=== PATIENT | female | born 2005 | race Caucasian/White ===

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

== ENCOUNTER 2024-07-24 18:06 | Emergency (ER) | payer SELFPAY ==
[~2024-07-24] VITALS: Ht 157.4 cm; Wt 56.7 kg
[2024-07-24] MEDS ORDERED: ACETAMINOPHEN 325 MG TAB PO ONE (18:25)
[2024-07-24] MEDS ORDERED: Ondansetron Hydrochloride 4 MG TAB SL ONE (18:25)
[2024-07-24 18:39] LABS: EOS % 0.5 % (1.0-4.0); MEAN CELL VOLUME 90.1 fl (81.0-99.0); MEAN CORPUSCULAR HGB 29.6 pg (27.0-31.0); MEAN CORPUSCULAR HGB CONC 32.8 g/dl (33.0-37.0); MONO # 0.3 10*3/uL (0.1-1.0); MONO % 12.4 % (3.0-9.0); NEUT # 1.2 10*3/uL (2.3-7.9); NEUT % 56.6 % (47.0-73.0); PLATELET COUNT AUTOMATED 192 10*3/uL (130-400); RED BLOOD COUNT 4.33 10*6/uL (4.10-5.10); RED CELL DISTRI WIDTH 14.3 % (0-14.5); WHITE BLOOD COUNT 2.2 10*3/uL (4.8-10.8)
[2024-07-24 19:05] LABS: BUN 7 mg/dl (9-23); CHLORIDE 104 mmol/L (98-107); POTASSIUM 3.5 mmol/L (3.4-5.1)
[2024-07-24 19:22] LABS: B-hCG (QUALITATIVE) NEGATIVE (NEGATIVE)
[2024-07-24 19:58] LABS: BILIRUBIN Negative (Negative); BLOOD Trace-Lysed (Negative); CLARITY Clear (Clear); COLOR Yellow (Yellow); GLUCOSE Negative (Negative); KETONE Negative (Negative); LEUKO ESTERASE Negative (Negative); NITRITE Negative (Negative); SPECIFIC GRAVITY 1.025 (1.001-1.030)
[2024-07-24 20:15] LABS: BACTERIA 1+
[2024-07-24] MEDS ORDERED: Oseltamivir Phosphate 75 MG CAP PO ONE (20:20)
[2024-07-24] MEDS ORDERED: TAMIFLU 75MG CA75 MG PO (20:20)
== END 2024-07-24 20:21 | disposition home or self-care (01) ==
LOC: ED 18:06
PROVIDERS: Internal Medicine
DX: J10.1 Influenza due to other identified influenza virus with other respiratory manifestations (principal); F32.A Depression, unspecified; F41.9 Anxiety disorder, unspecified; Z88.1 Allergy status to other antibiotic agents; Z20.822 Contact with and (suspected) exposure to COVID-19; Z88.0 Allergy status to penicillin; Z88.8 Allergy status to other drugs, medicaments and biological substances

== ENCOUNTER 2024-07-30 18:49 | Emergency (ER) | payer SELFPAY ==
[~2024-07-30] VITALS: Ht 157.4 cm; Wt 54.4 kg
[2024-07-30] MEDS ORDERED: FAMOTIDINE 50 ML IV ONE (19:30)
[2024-07-30] MEDS ORDERED: diphenhydrAMINE hydrochloride 50 MG/ML VIAL IV ONE (19:30)
[2024-07-30] MEDS ORDERED: Dexamethasone Sodium Phospha 20 MG/5 ML VIAL IV ONE (19:30)
[2024-07-30] MEDS ORDERED: MEDROL DOSEPAK4 MG PO (20:56)
== END 2024-07-30 21:05 | disposition home or self-care (01) ==
LOC: ED 18:49
DX: T78.1XXA Other adverse food reactions, not elsewhere classified, initial encounter (principal); L50.9 Urticaria, unspecified; F32.A Depression, unspecified; F41.9 Anxiety disorder, unspecified; Z88.0 Allergy status to penicillin; Z88.1 Allergy status to other antibiotic agents; Z88.8 Allergy status to other drugs, medicaments and biological substances; Z91.013 Allergy to seafood; X58.XXXA Exposure to other specified factors, initial encounter

== ENCOUNTER 2025-05-07 20:32 | Emergency (ER) | payer SELFPAY ==
[~2025-05-07] VITALS: Ht 157.4 cm; Wt 56.7 kg
[~2025-05-07 20:32] MED LIST changes: +MEDROL DOSEPAK4 MG PO
[2025-05-07] MEDS ORDERED: ZYRTEC10 M2 PO (20:58)
[2025-05-07 21:59] LABS: BASO # 0.0 10*3/uL (0.0-0.1); BASO % 0.5 % (0.0-1.0); EOS # 0.0 10*3/uL (0.0-0.4); EOS % 1.0 % (1.0-4.0); MEAN CELL VOLUME 88.0 fl (81.0-99.0); MEAN CORPUSCULAR HGB 29.4 pg (27.0-31.0); MEAN PLATELET VOLUME 8.9 fl (9.6-12.3); MONO # 0.3 10*3/uL (0.1-1.0); MONO % 7.7 % (3.0-9.0); NEUT # 1.8 10*3/uL (2.3-7.9); NEUT % 47.0 % (47.0-73.0); NUCLEATED RED BLOOD CELL 0.0 % (0.0-0.0); NUCLEATED RED BLOOD CELL 0.0 10*3/uL (0.0-0.0); PLATELET COUNT AUTOMATED 248 10*3/uL (130-400); RED CELL DISTRI WIDTH 17.2 % (0-14.5)
[2025-05-07] MEDS ORDERED: FAMOTIDINE 20 MG TAB PO ONE (22:00)
[2025-05-07 22:14] LABS: BUN < 5 mg/dl (9-23); SGPT/ALT 32 U/L (5-49)
[2025-05-07] MEDS ORDERED: TRIAMCINOLONE ACETONIDE 0.1% CREAM 15 GM TUBE T ONE (22:15)
[2025-05-07] MEDS ORDERED: VIBRAMYCIN100 MG PO (22:46)
[2025-05-07] MEDS ORDERED: methylPREDNISolone 4 MG TAB PO ONE (22:50)
== END 2025-05-07 22:49 | disposition home or self-care (01) ==
LOC: ED 20:32
PROVIDERS: Nurse Practitioner
DX: S80.862A Insect bite (nonvenomous), left lower leg, initial encounter (principal); L25.9 Unspecified contact dermatitis, unspecified cause; Z88.0 Allergy status to penicillin; Z88.8 Allergy status to other drugs, medicaments and biological substances; W57.XXXA Bitten or stung by nonvenomous insect and other nonvenomous arthropods, initial encounter; Y93.89 Activity, other specified; Y92.89 Other specified places as the place of occurrence of the external cause; Y99.8 Other external cause status